=== PATIENT | female | born 1995 | race Caucasian/White ===

== ENCOUNTER 2016-12-20 13:33 | Emergency (ER) | payer OTHER ==
[2016-12-20 14:13] LABS: APPEARANCE,URINE CLEAR; BILIRUBIN,URINE NEGATIVE (NEGATIVE); GLUCOSE, URINE NEGATIVE (NEGATIVE); KETONES,URINE NEGATIVE (NEGATIVE); LEUKOCYTE ESTERASE,URINE NEGATIVE (NEGATIVE); NITRITE,URINE NEGATIVE (NEGATIVE); PROTEIN,URINE NEGATIVE (NEGATIVE); URINE SPECIFIC GRAVITY 1.003; UROBILINOGEN,URINE NEGATIVE mg/dL (<2.0)
--- NOTE | 2016-12-20 15:51 | ER Document Report ---
HPI - HPI Pain Level: 3 Notes: Patient is a 21-year-old female presents the ED complaining of bladder pain status post void and feeling of incomplete void 1 week. Patient also has increased urgency with an occasional burning initially. Patient states that she does urinate sometimes every 15 minutes. Patient states that she has been seen twice by her primary care provider this week for this issue and was placed on 2 different antibiotics with no improvement in symptoms. Patient states that her urine cultures and urinalysis both came back unremarkable this past week, and she also had a pelvic exam and tests that were all negative. Patient states that STD testing was negative as well. Patient states that her PCM did place a referral for urology, but patient was concerned with continued pain post void and wanted evaluated at the ED. She denies any unprotected sex, drug allergies, smoking, or other illicit drugs. Patient states that she does take minocycline for acne and has another past medical history significant for celiac. Denies any fever, headache, URI, sore throat, ear pain, chest pain, palpitations, syncope, cough, shortness of breath, wheeze, abdominal pain, nausea/vomiting/diarrhea, hematuria, vaginal discharge/bleeding, joint pains, muscle aches, or rash. Denies any recent travel, sick contacts, or recent illness. - ROS Notes: REVIEW OF SYSTEMS: CONSTITUTIONAL : Denies fever, chills, or sweats. Denies recent illness. EENT: Denies eye, ear, throat, or mouth pain or symptoms. Denies nasal or sinus congestion or discharge. Denies throat, tongue, or mouth swelling or difficulty swallowing. CARDIOVASCULAR: Denies chest pain. Denies palpitations or racing or irregular heart beat. Denies ankle edema. RESPIRATORY: Denies cough, cold, or chest congestion. Denies shortness of breath, difficulty breathing, or wheezing. GASTROINTESTINAL: Denies abdominal pain or distention. Denies nausea, vomiting , or diarrhea. Denies blood in vomitus, stools, or per rectum. Denies black, tarry stools. Denies constipation. GENITOURINARY: see hpi FEMALE GENITOURINARY: Denies vaginal bleeding, heavy or abnormal periods, irregular periods. Denies vaginal discharge or odor. MUSCULOSKELETAL: Denies back or neck pain or stiffness. Denies joint pain or swelling. SKIN: Denies rash, lesions or sores. NEUROLOGICAL: Denies confusion or altered mental status. Denies passing out or loss of consciousness. Denies dizziness or lightheadedness. Denies headache. Denies weakness or paralysis or loss of use of either side. Denies problems with gait or speech. Denies sensory loss, numbness, or tingling. Denies seizures. PSYCHIATRIC: Denies anxiety or stress. Denies depression, suicidal ideation, or homicidal ideation. ALL OTHER SYSTEMS REVIEWED AND NEGATIVE. Dictation was performed using [employer] voice recognition software - DERM Skin Color: Normal Past Medical History - Social History Smoking Status: Never Smoker Family History: Reviewed & Not Pertinent Patient has suicidal ideation: No Patient has homicidal ideation: No Renal/ Medical History: Denies: Hx Peritoneal Dialysis Vertical Provider Document - CONSTITUTIONAL Agree With Documented VS: Yes Notes: PHYSICAL EXAMINATION: GENERAL: Well-appearing, well-nourished and in no acute distress. HEAD: Atraumatic, normocephalic. EYES: Pupils equal round and reactive to light, extraocular movements intact, sclera anicteric, conjunctiva are normal. ENT: EAC clear b/l. TM's intact b/l without erythema, fluid, or perforation. Nares patent and without discharge. oropharynx clear without exudates. No tonsilar hypertrophy or erythema. Moist mucous membranes. No sinus tenderness. NECK: Normal range of motion, supple without lymphadenopathy LUNGS: Breath sounds clear to auscultation bilaterally and equal. No wheezes rales or rhonchi. HEART: Regular rate and rhythm without murmurs, rubs, gallops. ABDOMEN: Soft, nontender, nondistended abdomen. No guarding, no rebound. No masses appreciated. Normal bowel sounds present. No CVA tenderness bilaterally. Musculoskeletal: ext b/l: FROM to passive/active. Strength 5+/5. Extremities: No cyanosis, clubbing, or edema b/l. Peripheral pulses 2+. Capillary refill less than 3 seconds. NEUROLOGICAL: Normal speech, normal gait. Normal sensory, motor exams PSYCH: Normal mood, normal affect. SKIN: Warm, Dry, normal turgor, no rashes or lesions noted. - RESPIRATORY O2 Sat by Pulse Oximetry: 100 Course - Re-evaluation Re-evalutation: 12/20/16 15:47 Patient is an afebrile, well-hydrated, 21-year-old female presents the ED with suspected bladder spasming based on H&P. Vitals are stable. PE otherwise unremarkable. Urinalysis unremarkable. Urine negative. Recent pelvic exam was reported to be unremarkable along with her STD testing along with previous urine cultures. Patient is currently on Bactrim from her PCM after a trial with ciprofloxacin. Pt is scheduled with Urology. Reviewed case with Dr. Abreu. Discussed post-void residual (catheter) with patient. Patient is still able to urinate so we agreed to pass on that test at this time. Reviewed case with Urologist (Dr. Callejas) who recommended bladder US. Results showed good bladder emptying without distension. I will send her with pyridium to see if that will help symptomatology. Low suspicion for any acute appendicitis, bowel obstruction, acute cholecystitis, perforated diverticulitis , incarcerated hernia, pancreatitis, pelvic inflammatory disease, perforated ulcer, ectopic , tubo-ovarian abscess at this time. Patient aware that condition can from initial presentation that she needs monitor symptoms closely and return to the ED immediately for any worsening symptoms. Information provided for a urologist that she can call tomorrow. Recheck with your PCM in 2-3 days. Keep appointment with Urologist in 2 days as scheduled. Return to ED with any worsening/concerning symptoms otherwise as reviewed in discharge. Patient is in agreement. - Vital Signs Vital signs: Temp Pulse Resp BP Pulse Ox 97.9 F 68 18 120/60 100 12/20/16 13:48 12/20/16 13:48 12/20/16 13:48 12/20/16 13:48 12/20/16 13:48 - Laboratory Laboratory results interpreted by me: 12/20/16 13:55 Urine Ascorbic Acid 20 H Discharge - Discharge Clinical Impression: Bladder spasm Condition: Stable Disposition: HOME, SELF-CARE Additional Instructions: Maintain fluid intake Monitor urinary habits and keep a log otc meds as needed Keep consult with Urology in 2 days Recheck with PCM this week Return to the ED with any worsening symptoms and/or development of fever, headache, chest pain, palpitations, syncope, shortness of breath, trouble breathing, abdominal pain, n/v/d, blood in stool/urine, loss of control of bowel /bladder, urinary retention, muscle weakness/paralysis, saddle anesthesia, numbness/tingling, or other worsening symptoms that are concerning to you. Prescriptions: Phenazopyridine HCl [Pyridium 200 mg Tablet] 200 mg PO TID #10 tablet Referrals: REYNOLD CALLEJAS MD [[facility]] - Follow up as needed
--- NOTE | 2016-12-20 17:02 | RADIOLOGY REPORT (SQ) ---
EXAM DESCRIPTION: U/S NON-OB PELVIS LTD W/O DOP COMPLETED DATE/TIME: 12/20/2016 4:50 pm REASON FOR STUDY: dysuria COMPARISON: None. TECHNIQUE: Pre and post void bladder imaging. LIMITATIONS: None. FINDINGS: PREVOID BLADDER VOLUME: 74.3 ml. POST VOID BLADDER VOLUME: 4.3 ml. OTHER: No other significant finding. IMPRESSION: NO SONOGRAPHIC ABNORMALITY IN THE BLADDER. BLADDER VOLUMES ABOVE. TECHNICAL DOCUMENTATION: JOB ID: [id number] [employer]- All Rights Reserved
[2016-12-20 17:34] VITALS: BP 104/62
== END 2016-12-20 17:36 | disposition home or self-care (01) ==
LOC: ER 13:33
DX: N32.89 Other specified disorders of bladder (principal); K90.0 Celiac disease; L70.9 Acne, unspecified; Z79.2 Long term (current) use of antibiotics
CPT/HCPCS: 76857; 81001; 81025; 99284